=== PATIENT | male | born 1945 | race Asian ===

== ENCOUNTER → 2017-11-24 | Outpatient (CLI) | payer MEDICARE, OTHER ==
[~2017-11-24] VITALS: Ht 160 cm; Wt 61.0 kg
[~2017-11-24] MED LIST: CARV25 PO; COLE625 PO; LOSA25TA21 PO
[2017-11-24 10:18] VITALS: BP 121/60
== END | disposition home or self-care (01) ==
LOC: SRCNTR 09:38
PROVIDERS: ATTEND Internal Medicine Cardiovascular Disease
DX: I11.9 Hypertensive heart disease without heart failure (principal); I25.10 Atherosclerotic heart disease of native coronary artery without angina pectoris; E78.5 Hyperlipidemia, unspecified
CPT/HCPCS: 93005; G0463